=== PATIENT | female | born 2000 | race American Indian/Alaskan Native ===

== ENCOUNTER 2020-09-09 02:15 | Emergency (ER) | payer MEDICAID ==
--- NOTE | 2020-09-09 02:41 | EDM.PDOC ---
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 She was watching TV at the time. She was concerned about this because she has not had a menstrual period since the beginning of January 2020 and she thought that she was . She states that she took a home test in February and it was positive. She has not sought any medical care and she just recently moved to the [facility]. She does have some mild cramping in her pelvic area but it does not radiate. She has no back pain. She rates pain to be as a 5/10. It is cramping type pain. It is worse with palpation. It does seem to come and go and she states at times her abdomen seems to tighten up and then relax. This is irregular. She has been eating and drinking normally. She has had no dysuria or hematuria. She's had no nausea or vomiting. No fevers or chills. She has had no trauma to the area. Last sexual intercourse was 2 days ago and there was no pain associated with this. She has 2 live children and has had one miscarriage. There are no other associated signs or symptoms. There are no other modifying factors. 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 Social & Family History - Tobacco Use Tobacco Use Status *Q: Never Tobacco User Second Hand Smoke Exposure: No - Caffeine Use Caffeine Use: Reports: Soda - Alcohol Use Alcohol Use History: No - Recreational Drug Use Recreational Drug Use: No - Living Situation & Occupation Occupation: Unemployed ED ROS GENERAL - Review of Systems Review Of Systems: See Below Constitutional: Reports: No Symptoms HEENT: Reports: No Symptoms Respiratory: Reports: No Symptoms Cardiovascular: Reports: No Symptoms Endocrine: Reports: No Symptoms : Reports: Pain (Pelvic pain), Other (Vaginal bleeding with prior of blood.) Musculoskeletal: Reports: No Symptoms Skin: Reports: No Symptoms Neurological: Reports: No Symptoms Hematologic/Lymphatic: Reports: No Symptoms Immunologic: Reports: No Symptoms ED EXAM - Physical Exam Exam: See Below Exam Limited By: No Limitations General Appearance: Alert, WD/WN, No Apparent Distress Eye Exam: Bilateral Eye: EOMI, Normal Inspection, PERRL Ears: Normal External Exam, Hearing Grossly Normal Nose: Normal Inspection, Normal Mucosa, No Blood Throat/Mouth: Normal Inspection, Normal Oropharynx, Normal Voice, No Airway Compromise Head: Atraumatic, Normocephalic Neck: Normal Inspection, Supple, Non-Tender, Full Range of Motion Respiratory/Chest: No Respiratory Distress, Lungs Clear, Normal Breath Sounds, No Accessory Muscle Use, Chest Non-Tender Cardiovascular: Normal Peripheral Pulses, Regular Rate, Rhythm, No JVD GI/Abdominal Exam: Normal Bowel Sounds, Soft, No Mass, Pelvis Stable, Other (Unable to palpate the uterus.) Fundal Height In cm: 0 (Unable to palpate the uterus.) Heart Tones: Not [place] Movement: Not Appreciated Back Exam: Normal Inspection, Full Range of Motion Extremities: Normal Inspection, Normal Range of Motion, Non-Tender, No Pedal Edema, Normal Capillary Refill Neurological: Alert, Oriented, CN II-XII Intact, Normal Cognition, No Motor/Sensory Deficits Psychiatric: Normal Affect Skin Exam: Warm, Dry, Intact, Normal Color, No Rash ED Add Procedures - Additional/Other Procedure(s) Procedure(s) (Free Text): Using the portable any ultrasound machine, a screening transabdominal pelvic ultrasound was performed. The bladder was apparent. The uterus was apparent that was empty. There is no free fluid appreciated in the pelvis. No was appreciated. Course - Vital Signs Last Recorded V/S: Last Vital Signs Temp 36.7 C 09/09/20 02:20 Pulse 81 09/09/20 02:20 Resp 18 09/09/20 02:20 BP 113/72 09/09/20 02:20 Pulse Ox 99 09/09/20 02:20 - Orders/Labs/Meds Labs: Laboratory Tests 09/09/20 Range/Units 02:53 Urine HCG, Qual Negative (NEGATIVE) - Re-Assessments/Exams Free Text/Narrative Re-Assessment/Exam: 09/09/20 03:15: 20-year-old female who presented reporting vaginal bleeding and was concerned because her estimate she was by 6 months but looking at the date of her last menstrual. She would be 33 weeks now. Her exam was not consistent with this and it ranges test was negative. She has been amenorrheic from 01/20/2020 until now. There is nothing further be done at this point. She is hemodynamically stable and appears to be having a menstrual period. She is to follow-up with either [facility] or [facility] clinics in [place]. She should call and arrange an appointment to be seen at one of these for further investigation in regard to her amenorrhea. Departure - Departure Time of Disposition: 03:20 Disposition: Home, Self-Care 01 Condition: Good Clinical Impression: Irregular menses - Discharge Information Referrals: PCP,None [Primary Care Provider] - Forms: ED Department Discharge Additional Instructions: Your test was negative. You are not . The vaginal bleeding that you are having appears to be menstrual bleeding. I am not sure why you have not had a menstrual period since January 2020. You will need to arrange for follow-up at either the [facility] or the [facility] in [place] as you will need further outpatient testing in regard to your irregular menstrual periods. Back to the emergency department for unrelenting vomiting, fever or any other concerning sign or symptom. Sepsis Event Note (ED) - Evaluation Sepsis Screening Result: No Definite Risk - Focused Exam Vital Signs: Vital Signs Temp Pulse Resp BP Pulse Ox 09/09/20 02:20 36.7 C 81 18 113/72 99
== END 2020-09-09 03:30 | disposition home or self-care (01) ==
LOC: FB.ED 02:15
DX: N92.6 Irregular menstruation, unspecified (principal)
CPT/HCPCS: 81025; 99284

== ENCOUNTER 2020-09-15 13:14 | Observation (INO) | payer MEDICAID ==
--- NOTE | 2020-09-15 13:17 | EDM.PDOC ---
ED HPI GENERAL MEDICAL PROBLEM - General Time Seen by Provider: 09/15/20 13:15 Source of Information: Reports: Patient History Limitations: Reports: No Limitations - History of Present Illness INITIAL COMMENTS - FREE TEXT/NARRATIVE: 20-year-old female who reports that at approximately 2 AM today she awoke with nausea and then had vomiting. She had diarrhea that began after this and had fitful sleep through the night and then at about 6 AM she developed pain in her epigastrium that was a tightening type pain that became sharp and sometimes radiated through to her back. It was colicky in nature and, at its worst, it was an 8-9/10 and currently is a 2/10. She has had congestion and a cough for about the past 2 days. She doesn't have any difficulty breathing. She reports she has had vomiting 10+ and diarrhea 3. There is no blood in either of these. No fevers or chills. She has had decreased intake since this began. She felt somewhat weak all over. No syncope or presyncope. She was told during her last year that she had gallstones and was supposed to follow-up but has not followed up. She had been eating and drinking normally prior to this. There are no other associated signs or symptoms. There are no other modifying factors. Onset: Today (2 AM) Duration: Waxing/Waning Location: Reports: Abdomen, Back Quality: Reports: Pressure, Sharp, Stabbing Severity: Mild (at times and others.) Improves with: Reports: None Worsens with: Reports: Other (Palpation. 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 Social & Family History - Tobacco Use Tobacco Use Status *Q: Never Tobacco User - Caffeine Use Caffeine Use: Reports: Soda - Alcohol Use Alcohol Use History: No - Living Situation & Occupation Occupation: Unemployed ED ROS GENERAL - Review of Systems Review Of Systems: See Below Constitutional: Reports: No Symptoms HEENT: Reports: Other (Nasal congestion) Respiratory: Reports: Cough Cardiovascular: Reports: No Symptoms GI/Abdominal: Reports: Abdominal Pain, Diarrhea, Nausea, Vomiting : Reports: No Symptoms Musculoskeletal: Reports: Back Pain (Mid back) Skin: Reports: No Symptoms Neurological: Reports: No Symptoms Psychiatric: Reports: No Symptoms Hematologic/Lymphatic: Reports: No Symptoms Immunologic: Reports: No Symptoms ED EXAM, GI/ABD - Physical Exam Exam: See Below Exam Limited By: No Limitations General Appearance: Alert, WD/WN, Moderate Distress (Appears in some discomfort.) Eyes: Bilateral: Normal Appearance, EOMI Ears: Normal External Exam, Hearing Grossly Normal Nose: No Blood Throat/Mouth: Normal Voice, No Airway Compromise, Other (Dry mucus membranes.) Head: Atraumatic, Normocephalic Neck: Normal Inspection, Supple, Non-Tender, Full Range of Motion Respiratory/Chest: No Respiratory Distress, Lungs Clear, Normal Breath Sounds, No Accessory Muscle Use, Chest Non-Tender Cardiovascular: Normal Peripheral Pulses, Regular Rate, Rhythm, No JVD, No Murmur GI/Abdominal Exam: Normal Bowel Sounds, Soft, No Mass, Guarding, Tender (In epigastrium and right upper quadrant.). No: Rigid, Rebound Back Exam: Normal Inspection, Full Range of Motion Extremities: Normal Inspection, Normal Range of Motion, Non-Tender, No Pedal Edema, Normal Capillary Refill Neurological: Alert, Oriented, CN II-XII Intact, Normal Cognition, No Motor/Sensory Deficits Psychiatric: Flat Affect Skin Exam: Warm, Dry, Intact, Normal Color, No Rash Lymphatic: No Adenopathy Course - Vital Signs Last Recorded V/S: Last Vital Signs Temp 36.6 C 09/15/20 14:57 Pulse 78 09/15/20 14:57 Resp 18 09/15/20 14:57 BP 124/74 09/15/20 14:57 Pulse Ox 99 09/15/20 14:57 - Orders/Labs/Meds Orders: Active Orders 24 hr Category Date Time Status Admission Status [Patient Status] [ADT] Routine ADT 09/15/20 16:37 Ordered Abdomen Pelvis w Cont [CT] Stat Exams 09/15/20 15:24 Taken Sodium Chloride 0.9% [Saline Flush] Med 09/15/20 13:19 Active 10 ml FLUSH ASDIRECTED PRN Peripheral IV Insertion Adult [OM.PC] Routine Oth 09/15/20 13:19 Ordered Medication Orders Sodium Chloride (Saline Flush) 10 ml FLUSH ASDIRECTED PRN PRN Reason: Keep Vein Open Last Admin: 09/15/20 15:16 Dose: 10 ml Documented by: Admin: 09/15/20 15:11 Dose: 10 ml Documented by: Admin: 09/15/20 14:53 Dose: 10 ml Documented by: Admin: 09/15/20 14:43 Dose: 10 ml Documented by: Admin: 09/15/20 14:01 Dose: 10 ml Documented by: Admin: 09/15/20 13:48 Dose: 10 ml Documented by: Admin: 09/15/20 13:44 Dose: 10 ml Documented by: AVINASH Labs: Laboratory Tests 09/15/20 09/15/20 09/15/20 Range/Units 13:35 13:35 13:35 WBC 13.7 H (3.0-10.3) x10-3/uL RBC 5.53 H (3.60-5.20) x10(6)uL Hgb 15.2 (11.4-15.5) g/dL Hct 46.5 (34.2-48.2) % MCV 84.1 (76.7-100.5) fL MCH 27.6 (23.9-33.9) pg MCHC 32.8 (31.9-34.8) g/dL RDW 14.2 (12.3-16.5) % Plt Count 244 (151-488) x10(3)uL MPV 9.7 (7.1-12.4) fL Neut % (Auto) 89.8 H (30.8-76.2) % Lymph % (Auto) 7.3 L (18.4-52.1) % [place] % (Auto) 2.0 L (4.4-15.7) % Eos % (Auto) 0.6 (0.6-8.1) % Baso % (Auto) 0.3 (0.2-1.5) % Neut # (Auto) 12.3 H (1.5-6.3) x10-3/uL Lymph # (Auto) 1.0 (1.0-4.4) x10-3/uL [place] # (Auto) 0.3 (0.3-1.0) x10-3/uL Eos # (Auto) 0.1 (0.0-0.8) x10-3/uL Baso # (Auto) 0.0 (0.0-0.1) x10-3/uL Sodium 141 (135-145) mmol/L Potassium 3.7 (3.5-5.3) mmol/L Chloride 105 (100-110) mmol/L Carbon Dioxide 22 (21-32) mmol/L BUN 13 (7-18) mg/dL Creatinine 0.6 (0.55-1.02) mg/dL Est Cr Clr Drug Dosing 116.32 mL/min Estimated GFR (MDRD) > 60 (>60) BUN/Creatinine Ratio 21.7 H (9-20) Glucose 109 (80-116) mg/dL Calcium 9.0 (8.6-10.2) mg/dL Magnesium (1.8-2.5) mg/dL Total Bilirubin 0.5 (0.1-1.3) mg/dL AST 13 (5-25) IU/L ALT 17 (12-36) U/L Alkaline Phosphatase 127 H (56-112) IU/L C-Reactive Protein 0.5 (0.5-0.9) mg/dL Total Protein 8.4 H (6.0-8.0) g/dL Albumin 4.1 (3.5-5.2) g/dL Globulin 4.3 g/dL Albumin/Globulin Ratio 1.0 Lipase 97 (73-393) U/L Urine HCG, Qual (NEGATIVE) SARS-CoV-2 RNA (DANIELLA) (NEGATIVE) 09/15/20 09/15/20 09/15/20 Range/Units 13:35 14:25 15:24 WBC (3.0-10.3) x10-3/uL RBC (3.60-5.20) x10(6)uL Hgb (11.4-15.5) g/dL Hct (34.2-48.2) % MCV (76.7-100.5) fL MCH (23.9-33.9) pg MCHC (31.9-34.8) g/dL RDW (12.3-16.5) % Plt Count (151-488) x10(3)uL MPV (7.1-12.4) fL Neut % (Auto) (30.8-76.2) % Lymph % (Auto) (18.4-52.1) % [place] % (Auto) (4.4-15.7) % Eos % (Auto) (0.6-8.1) % Baso % (Auto) (0.2-1.5) % Neut # (Auto) (1.5-6.3) x10-3/uL Lymph # (Auto) (1.0-4.4) x10-3/uL [place] # (Auto) (0.3-1.0) x10-3/uL Eos # (Auto) (0.0-0.8) x10-3/uL Baso # (Auto) (0.0-0.1) x10-3/uL Sodium (135-145) mmol/L Potassium (3.5-5.3) mmol/L Chloride (100-110) mmol/L Carbon Dioxide (21-32) mmol/L BUN (7-18) mg/dL Creatinine (0.55-1.02) mg/dL Est Cr Clr Drug Dosing mL/min Estimated GFR (MDRD) (>60) BUN/Creatinine Ratio (9-20) Glucose (80-116) mg/dL Calcium (8.6-10.2) mg/dL Magnesium 1.9 (1.8-2.5) mg/dL Total Bilirubin (0.1-1.3) mg/dL AST (5-25) IU/L ALT (12-36) U/L Alkaline Phosphatase (56-112) IU/L C-Reactive Protein (0.5-0.9) mg/dL Total Protein (6.0-8.0) g/dL Albumin (3.5-5.2) g/dL Globulin g/dL Albumin/Globulin Ratio Lipase (73-393) U/L Urine HCG, Qual Negative (NEGATIVE) SARS-CoV-2 RNA (DANIELLA) Negative (NEGATIVE) Meds: Medications Generic Name Dose Route Start Last Admin Trade Name Gael PRN Reason Stop Dose Admin Sodium Chloride 10 ml 09/15/20 13:19 09/15/20 15:16 Saline Flush FLUSH 10 ml ASDIRECTED PRN Administration Keep Vein Open Discontinued Medications Generic Name Dose Route Start Last Admin Trade Name Gael PRN Reason Stop Dose Admin Hydromorphone HCl 1 mg 09/15/20 14:36 09/15/20 14:43 Dilaudid IVPUSH 09/15/20 14:37 1 mg ONETIME ONE Administration Sodium Chloride 1,000 mls @ 999 mls/hr 09/15/20 13:20 09/15/20 13:44 Normal Saline IV 09/15/20 14:20 999 mls/hr .BOLUS ONE Administration Iopamidol 100 ml 09/15/20 15:47 09/15/20 16:09 Isovue-370 (76%) IV 09/15/20 15:48 67 ml . DIRECTED ONE Administration Metoclopramide HCl 10 mg 09/15/20 15:08 09/15/20 15:12 Reglan IVPUSH 09/15/20 15:09 10 mg ONETIME ONE Administration Morphine Sulfate 4 mg 09/15/20 13:20 09/15/20 13:49 Morphine IVPUSH 09/15/20 13:21 4 mg ONETIME ONE Administration Ondansetron HCl 4 mg 09/15/20 13:20 09/15/20 13:45 Zofran IVPUSH 09/15/20 13:21 4 mg ONETIME ONE Administration - Radiology Interpretation Free Text/Narrative:: CT scan of the abdomen and pelvis showed no specific findings to account for the patient's symptoms per the [facility] radiologist. - Re-Assessments/Exams Free Text/Narrative Re-Assessment/Exam: 09/15/20 14:30: Her nausea has resolved. Her pain is a 5/10. Her blood tests do show an elevated white blood cell count at 13.7 but her LFTs and lipase are normal. I will give the patient Dilaudid 1 mg IV 09/15/20 15:20: Patient having continued abdominal pain despite additional pain medicines. She also has had recurrent vomiting. I am giving additional antiemetics now. I have discussed the patient's case with Dr. Baeza and he recommends CT scan of the abdomen and pelvis. 09/15/20 16:35: CT scan of the abdomen and pelvis showed no specific findings to account for the patient's symptoms per the radiologist. Dr. Baeza has seen the patient and he feels that I should admit the patient to the hospitalist and he would follow. An ultrasound of the gallbladder be performed tomorrow during the day. Therefore, I called and discussed the patient's case with Dr. Gaxiola and he will admit the patient. I discussed this with the patient and she is in agreement with the plan for admission. Departure - Departure Time of Disposition: 16:40 Disposition: Refer to Observation Condition: Fair (Stable) Clinical Impression: Vomiting and diarrhea Abdominal pain Qualifiers: Abdominal location: upper abdomen, unspecified Qualified Code(s): R10.10 - Upper abdominal pain, unspecified - Discharge Information Referrals: PCP,None [Primary Care Provider] - Sepsis Event Note (ED) - Focused Exam Vital Signs: Vital Signs Temp Pulse Resp BP Pulse Ox 09/15/20 14:57 36.6 C 78 18 124/74 99 09/15/20 13:21 37.1 C 80 18 119/56 L 96 - My Orders Last 24 Hours: My Active Orders 09/15/20 13:19 Sodium Chloride 0.9% [Saline Flush] 10 ml FLUSH ASDIRECTED PRN Peripheral IV Insertion Adult [OM.PC] Routine 09/15/20 15:24 Abdomen Pelvis w Cont [CT] Stat 09/15/20 16:37 Admission Status [Patient Status] [ADT] Routine - Assessment/Plan Last 24 Hours: My Active Orders 09/15/20 13:19 Sodium Chloride 0.9% [Saline Flush] 10 ml FLUSH ASDIRECTED PRN Peripheral IV Insertion Adult [OM.PC] Routine 09/15/20 15:24 Abdomen Pelvis w Cont [CT] Stat 09/15/20 16:37 Admission Status [Patient Status] [ADT] Routine
[2020-09-15] MEDS ORDERED: Morphine 4 MG/ML VIAL IVPUSH ONE (13:20)
[2020-09-15] MEDS ORDERED: Sodium Chloride 0.9% 1,000 ML IV ONE (13:20)
[2020-09-15] MEDS ORDERED: Ondansetron 4 MG/2 ML SDV IVPUSH ONE (13:20)
[2020-09-15] MEDS: Sodium Chloride 0.9% 10 ML Syringe FLUSH PRN ×7 (13:44→15:16)
[2020-09-15] MEDS ORDERED: HYDROmorphone 2 MG/ML SDV IVPUSH ONE (14:36)
[2020-09-15] MEDS ORDERED: Metoclopramide 10 MG/2 ML SDV IVPUSH ONE (15:08)
[2020-09-15] MEDS ORDERED: Iopamidol 755 Mg/ML 100 ML Bottle IV ONE (15:47)
--- NOTE | 2020-09-15 17:05 | CONS ---
DATE OF CONSULTATION: 09/15/2020 HISTORY OF PRESENT ILLNESS: This 20-year-old female presented to the emergency room today with complaints of upper abdominal pain, some nausea, as well as some episodes of diarrhea. These began approximately 0200. She relates these symptoms to be similar to symptoms she experienced about 15 months ago while . She was evaluated at another facility at that time and reports that she was found to have cholelithiasis documented by ultrasound. The patient says that in the interim, she has been feeling well, she has not been experiencing any difficulty eating or problems with nausea. DIAGNOSTIC DATA: On evaluation today, has identified elevated serum white blood cell count of 13,700. Liver function tests are normal including a bilirubin of 0.5. Her lipase is 97. COVID test as well as CT scan of the abdomen are pending at this time. PAST MEDICAL HISTORY: Reveals no previous abdominal or pelvic surgery. She is a mother of 2 children. She is otherwise healthy. Does not take routine prescription medications. ALLERGIES: Has no known drug allergies. FAMILY HISTORY: Noncontributory. SOCIAL HISTORY: The patient is currently unemployed and is not . She denies alcohol or tobacco use. REVIEW OF SYSTEMS: The patient does note that she has had a slight cough over the last 2 days. No unexplained fever or shortness of breath was noted. No chest pain or palpitations. She typically does not have any symptoms of heartburn or difficulty swallowing. Bowel function has been satisfactory. No voiding difficulties and no extremity complaints. PHYSICAL EXAMINATION: VITAL SIGNS: Weight is 130 pounds, temperature 97.8, pulse 78, blood pressure is 124/74. GENERAL: The patient is an adult female. She is currently in no acute distress. HEENT: Her head is normocephalic. No scleral icterus. No cervical masses are noted. HEART: Regular without murmur. LUNGS: Clear. No wheezing is identified. She has no CVA tenderness to percussion. ABDOMEN: Soft. There is no distention. I do not feel any abdominal masses. She does have tenderness to direct palpation in the right upper quadrant, more medial than lateral. No guarding is noted. There is also mild tenderness to direct palpation in the left lower quadrant. EXTREMITIES: Show no obvious deformity or edema. IMPRESSION: 1. Abdominal pain with history of gallstones, suspect biliary colic. 2. Cough. COVID test pending. RECOMMENDATIONS: We will await results of a pending CT scan and if this confirms gallbladder disease and if the patient's COVID test is negative, we will consider cholecystectomy. I have discussed the proposed cholecystectomy with the patient, reviewed with her indications, options, and risks, and she agrees to have this performed if additional testing supports this. /[id number] ROXANE/PIERO
[2020-09-15] MEDS ORDERED: Ondansetron 4 MG/2 ML SDV IVPUSH PRN (20:01)
[2020-09-15] MEDS ORDERED: HYDROmorphone 2 MG/ML SDV IVPUSH PRN (20:01)
[2020-09-15] MEDS: Dextrose 5%-0.9% NaCl with KCl 1,000 ML IV SCH (20:42)
--- NOTE | 2020-09-15 20:50 | HP ---
ADMISSION DATE: 09/15/2020 CHIEF COMPLAINT: Severe right upper quadrant abdominal pain, nausea, and vomiting. HISTORY OF PRESENT ILLNESS: Girish Castro is a 20-yea-old female, who resides [place], was seen at [facility] ER on the late afternoon of 09/15/2020. She was awakened from sleep about 2:00 a.m. with severe abdominal pain. She thought it was a dream. Immediately, she had episodes of nausea and vomiting. The pain, cramps, discomfort, nausea, and vomiting persisted through the course of the day. Quite severe pain. The pain radiated into the back, but not up into the shoulder. Emesis was bilious nature. Stools have been otherwise unremarkable. History suggests that she has a history of stones dating back to her last . She was diagnosed with stones during her . Her little girl is now 10 months of age. Strong family history of gallbladder disease in mom and mother's grandmother, has no sibling sisters. She has otherwise been in good health. PAST MEDICAL HISTORY: Significant for no previous operative procedures, hospitalizations, unusual childhood diseases, major injuries, or fractures. ALLERGIES: None. GYNECOLOGICAL HISTORY: 2, para 2-0-0-2 female. SOCIAL HISTORY: . works at . She has a son who is going to be 2, daughters 10 months. She is a [id number] mom. No smoking. No vaping. No chewing. No alcohol. No illicit drug use. FAMILY HISTORY: Dad 43, good health. Mom 45, good health. Five brothers. No sisters. No family history of early heart disease, diabetes mellitus, or inheritable cancer. REVIEW OF SYSTEMS: Thirteen-point review of systems other than mentioned in HPI are considered negative, normal, and without conflict. Otherwise healthy fit 20- year-old female. PHYSICAL EXAMINATION: VITAL SIGNS: Stable. GENERAL: Very cooperative and conversant. Gives a good history. HEENT: Funduscopic benign. Conjunctivae are clear. Bright tympanic membranes. Clear nasal discharge. Mouth and oropharynx are clear. NECK: Benign. Thyroid small. CHEST: On auscultation, clear in all lung galvan. HEART: On auscultation, no ectopy or murmur. BREASTS: Deferred. HEART: No ectopy or murmur. ABDOMEN: Benign. Positive Cadet sign. Tender right upper quadrant. No hepatosplenomegaly. GENITOURINARY: Deferred. RECTAL: Deferred. SKIN: No particular lesions, eruptions, or moles. LABORATORY STUDIES: White count 13,700, hemoglobin 15.2, hematocrit 46.5, and normal differential. Electrolytes are satisfactory. Mildly elevated alkaline phosphatase at 127. test negative. COVID test negative. ASSESSMENT: A 20-year-old 2 female, who presents with complicated right upper quadrant pain, strong suspicious for gallbladder disease, history of stones by ultrasound during her last , not seen on CAT scan. PLAN: Hydrate fluids, pain control, nausea control, complementary care, and well-being. Ultrasound be performed in the morning. Dr. Juancarlos Baeza has been consulted for consideration for surgery. /[id number] ADRIENNE/PIERO
[2020-09-16] MEDS: Dextrose 5%-0.9% NaCl with KCl 1,000 ML IV SCH ×2 (03:30→10:14)
--- NOTE | 2020-09-16 09:10 | PCM.PN ---
- General Info Date of Service: 09/16/20 Subjective Update: Patient states that she is better. Pain still persistent on eating anything,associated with vomiting. US pending. Meanwhile she is NPO - Review of Systems General: Reports: No Symptoms HEENT: Reports: No Symptoms Pulmonary: Reports: No Symptoms Cardiovascular: Reports: No Symptoms - Patient Data Vitals - Most Recent: Last Vital Signs Temp 98.7 F 09/16/20 03:30 Pulse 70 09/16/20 03:30 Resp 18 09/16/20 03:30 BP 96/57 L 09/16/20 03:30 Pulse Ox 98 09/16/20 03:30 Weight - Most Recent: 58.241 kg I&O - Last 24 Hours: Intake & Output 09/15/20 09/16/20 09/16/20 22:59 06:59 14:59 Intake Total 1475 Output Total 300 300 Balance -300 1175 Lab Results Last 24 Hours: Laboratory Results - last 24 hr 09/15/20 09/15/20 09/15/20 Range/Units 13:35 13:35 13:35 WBC 13.7 H (3.0-10.3) x10-3/uL RBC 5.53 H (3.60-5.20) x10(6)uL Hgb 15.2 (11.4-15.5) g/dL Hct 46.5 (34.2-48.2) % MCV 84.1 (76.7-100.5) fL MCH 27.6 (23.9-33.9) pg MCHC 32.8 (31.9-34.8) g/dL RDW 14.2 (12.3-16.5) % Plt Count 244 (151-488) x10(3)uL MPV 9.7 (7.1-12.4) fL Neut % (Auto) 89.8 H (30.8-76.2) % Lymph % (Auto) 7.3 L (18.4-52.1) % [place] % (Auto) 2.0 L (4.4-15.7) % Eos % (Auto) 0.6 (0.6-8.1) % Baso % (Auto) 0.3 (0.2-1.5) % Neut # (Auto) 12.3 H (1.5-6.3) x10-3/uL Lymph # (Auto) 1.0 (1.0-4.4) x10-3/uL [place] # (Auto) 0.3 (0.3-1.0) x10-3/uL Eos # (Auto) 0.1 (0.0-0.8) x10-3/uL Baso # (Auto) 0.0 (0.0-0.1) x10-3/uL Sodium 141 (135-145) mmol/L Potassium 3.7 (3.5-5.3) mmol/L Chloride 105 (100-110) mmol/L Carbon Dioxide 22 (21-32) mmol/L BUN 13 (7-18) mg/dL Creatinine 0.6 (0.55-1.02) mg/dL Est Cr Clr Drug Dosing 116.32 mL/min Estimated GFR (MDRD) > 60 (>60) BUN/Creatinine Ratio 21.7 H (9-20) Glucose 109 (80-116) mg/dL Calcium 9.0 (8.6-10.2) mg/dL Magnesium (1.8-2.5) mg/dL Total Bilirubin 0.5 (0.1-1.3) mg/dL AST 13 (5-25) IU/L ALT 17 (12-36) U/L Alkaline Phosphatase 127 H (56-112) IU/L C-Reactive Protein 0.5 (0.5-0.9) mg/dL Total Protein 8.4 H (6.0-8.0) g/dL Albumin 4.1 (3.5-5.2) g/dL Globulin 4.3 g/dL Albumin/Globulin Ratio 1.0 Lipase 97 (73-393) U/L Urine HCG, Qual (NEGATIVE) SARS-CoV-2 RNA (DANIELLA) (NEGATIVE) 09/15/20 09/15/20 09/15/20 Range/Units 13:35 14:25 15:24 WBC (3.0-10.3) x10-3/uL RBC (3.60-5.20) x10(6)uL Hgb (11.4-15.5) g/dL Hct (34.2-48.2) % MCV (76.7-100.5) fL MCH (23.9-33.9) pg MCHC (31.9-34.8) g/dL RDW (12.3-16.5) % Plt Count (151-488) x10(3)uL MPV (7.1-12.4) fL Neut % (Auto) (30.8-76.2) % Lymph % (Auto) (18.4-52.1) % [place] % (Auto) (4.4-15.7) % Eos % (Auto) (0.6-8.1) % Baso % (Auto) (0.2-1.5) % Neut # (Auto) (1.5-6.3) x10-3/uL Lymph # (Auto) (1.0-4.4) x10-3/uL [place] # (Auto) (0.3-1.0) x10-3/uL Eos # (Auto) (0.0-0.8) x10-3/uL Baso # (Auto) (0.0-0.1) x10-3/uL Sodium (135-145) mmol/L Potassium (3.5-5.3) mmol/L Chloride (100-110) mmol/L Carbon Dioxide (21-32) mmol/L BUN (7-18) mg/dL Creatinine (0.55-1.02) mg/dL Est Cr Clr Drug Dosing mL/min Estimated GFR (MDRD) (>60) BUN/Creatinine Ratio (9-20) Glucose (80-116) mg/dL Calcium (8.6-10.2) mg/dL Magnesium 1.9 (1.8-2.5) mg/dL Total Bilirubin (0.1-1.3) mg/dL AST (5-25) IU/L ALT (12-36) U/L Alkaline Phosphatase (56-112) IU/L C-Reactive Protein (0.5-0.9) mg/dL Total Protein (6.0-8.0) g/dL Albumin (3.5-5.2) g/dL Globulin g/dL Albumin/Globulin Ratio Lipase (73-393) U/L Urine HCG, Qual Negative (NEGATIVE) SARS-CoV-2 RNA (DANIELLA) Negative (NEGATIVE) Med Orders - Current: Current Medications Hydromorphone HCl (Dilaudid) 1 mg IVPUSH Q2H PRN PRN Reason: Nausea Potassium Chloride/Dextrose/Sod Cl (D5 Ns With 20 Meq Kcl) 1,000 mls @ 150 mls/hr IV ASDIRECTED JO Last Admin: 09/16/20 03:30 Dose: 150 mls/hr Documented by: Ondansetron HCl (Zofran) 4 mg IVPUSH Q4H PRN PRN Reason: Nausea/Vomiting Sodium Chloride (Saline Flush) 10 ml FLUSH ASDIRECTED PRN PRN Reason: Keep Vein Open Last Admin: 09/15/20 15:16 Dose: 10 ml Documented by: Discontinued Medications Hydromorphone HCl (Dilaudid) 1 mg IVPUSH ONETIME ONE Stop: 09/15/20 14:37 Last Admin: 09/15/20 14:43 Dose: 1 mg Documented by: Sodium Chloride (Normal Saline) 1,000 mls @ 999 mls/hr IV .BOLUS ONE Stop: 09/15/20 14:20 Last Admin: 09/15/20 13:44 Dose: 999 mls/hr Documented by: Iopamidol (Isovue-370 (76%)) 100 ml IV . DIRECTED ONE Stop: 09/15/20 15:48 Last Admin: 09/15/20 16:09 Dose: 67 ml Documented by: Metoclopramide HCl (Reglan) 10 mg IVPUSH ONETIME ONE Stop: 09/15/20 15:09 Last Admin: 09/15/20 15:12 Dose: 10 mg Documented by: Morphine Sulfate (Morphine) 4 mg IVPUSH ONETIME ONE Stop: 09/15/20 13:21 Last Admin: 09/15/20 13:49 Dose: 4 mg Documented by: Ondansetron HCl (Zofran) 4 mg IVPUSH ONETIME ONE Stop: 09/15/20 13:21 Last Admin: 09/15/20 13:45 Dose: 4 mg Documented by: - Exam General: Alert, Oriented Neck: Supple GI/Abdominal Exam: Normal Bowel Sounds, Soft, Distended, Tender. No: Mass, Hepatomegaly, Splenomegaly Neurological: No New Focal Deficit Psy/Mental Status: Alert Sepsis Event Note - Evaluation Sepsis Screening Result: No Definite Risk - Focused Exam Vital Signs: Vital Signs Temp Pulse Resp BP Pulse Ox 09/16/20 03:30 98.7 F 70 18 96/57 L 98 - Problem List & Annotations (1) Epigastric pain SNOMED Code(s): 81991495 Code(s): R10.13 - EPIGASTRIC PAIN Status: Acute Current Visit: Yes - Problem List Review Problem List Initiated/Reviewed/Updated: Yes - Plan Plan:: Obtain US to r/o gallbladder disease. Treat symptomatically. PPI,IV antiemetics. Possible DC in AM
--- NOTE | 2020-09-16 11:54 | US ---
INDICATION: Right upper quadrant abdominal pain, consider gallstones. RIGHT UPPER QUADRANT/GALLBLADDER ULTRASOUND: Utilizing 2-D realtime, duplex Doppler, spectral analysis and color-flow imaging examination of the right upper quadrant was obtained and revealed the gallbladder to be normal in size. However, there are multiple calculi of small to moderate number, the largest measuring approximately 1.2 cm. No wall thickening, sludge, pericholecystic fluid or positive ultrasonic Cadet sign was noted. Common bile duct was normal in caliber at 3.7 mm. The liver, pancreas, and right kidney were unremarkable. No mass lesions or free fluid collections were identified. IMPRESSION: Cholelithiasis. Report was given in person to Dr. Baeza at 1011 hours. [facility]
--- NOTE | 2020-09-16 15:17 | PCM.SURGPN ---
- General Info Date of Service: 09/16/20 - Review of Systems Systems Review Comment:: Patient continues to have pain in her abdomen today. She underwent an ultrasound this morning which confirmed cholelithiasis. Symptoms are consistent with this as a cause of her pain and I have advised cholecystectomy to which the patient agrees. I have discussed the proposed cholecystectomy with the patient. Risks and possible complications reviewed. Potential GI side effects of cholecystectomy also discussed. She agrees to proceed. This will be scheduled later today. - Patient Data Vitals - Most Recent: Last Vital Signs Temp 98.7 F 09/16/20 07:51 Pulse 67 09/16/20 07:51 Resp 18 09/16/20 07:51 BP 123/77 09/16/20 07:51 Pulse Ox 99 09/16/20 07:51 Weight - Most Recent: 128 lb 6.4 oz I&O - Last 24 Hours: Intake & Output 09/16/20 09/16/20 09/16/20 06:59 14:59 22:59 Intake Total 1475 1053 Output Total 300 Balance 1175 1053 Lab Results Last 24 Hrs: Laboratory Results - last 24 hr 09/15/20 Range/Units 15:24 SARS-CoV-2 RNA (DNAIELLA) Negative (NEGATIVE) Med Orders - Current: Current Medications Hydromorphone HCl (Dilaudid) 1 mg IVPUSH Q2H PRN PRN Reason: Nausea Potassium Chloride/Dextrose/Sod Cl (D5 Ns With 20 Meq Kcl) 1,000 mls @ 150 mls/hr IV ASDIRECTED JO Last Admin: 09/16/20 10:14 Dose: 150 mls/hr Documented by: Ondansetron HCl (Zofran) 4 mg IVPUSH Q4H PRN PRN Reason: Nausea/Vomiting Sodium Chloride (Saline Flush) 10 ml FLUSH ASDIRECTED PRN PRN Reason: Keep Vein Open Last Admin: 09/15/20 15:16 Dose: 10 ml Documented by: Discontinued Medications Hydromorphone HCl (Dilaudid) 1 mg IVPUSH ONETIME ONE Stop: 09/15/20 14:37 Last Admin: 09/15/20 14:43 Dose: 1 mg Documented by: Sodium Chloride (Normal Saline) 1,000 mls @ 999 mls/hr IV .BOLUS ONE Stop: 09/15/20 14:20 Last Admin: 09/15/20 13:44 Dose: 999 mls/hr Documented by: Iopamidol (Isovue-370 (76%)) 100 ml IV . DIRECTED ONE Stop: 09/15/20 15:48 Last Admin: 09/15/20 16:09 Dose: 67 ml Documented by: Metoclopramide HCl (Reglan) 10 mg IVPUSH ONETIME ONE Stop: 09/15/20 15:09 Last Admin: 09/15/20 15:12 Dose: 10 mg Documented by: Morphine Sulfate (Morphine) 4 mg IVPUSH ONETIME ONE Stop: 09/15/20 13:21 Last Admin: 09/15/20 13:49 Dose: 4 mg Documented by: Ondansetron HCl (Zofran) 4 mg IVPUSH ONETIME ONE Stop: 09/15/20 13:21 Last Admin: 09/15/20 13:45 Dose: 4 mg Documented by: Sepsis Event Note - Evaluation Sepsis Screening Result: No Definite Risk - Focused Exam Vital Signs: Vital Signs Temp Pulse Resp BP Pulse Ox 09/16/20 07:51 98.7 F 67 18 123/77 99 09/16/20 03:30 98.7 F 70 18 96/57 L 98 - Problem List Review Problem List Initiated/Reviewed/Updated: Yes - My Orders Last 24 Hours: Active Orders 24 hr Category Date Time Status Admission Status [Patient Status] [ADT] Routine ADT 09/15/20 16:37 Active Notify Provider Consults [RC] ASDIRECTED Care 09/15/20 20:05 Active Vital Signs [RC] Q6H Care 09/15/20 20:04 Active Consult to Physician [CONS] Routine Cons 09/15/20 20:04 Ordered Clear Liquid Diet [DIET] Diet 09/16/20 Breakfast Active Abdomen Pelvis w Cont [CT] Stat Exams 09/15/20 15:24 Taken Dextrose 5%-0.9% NaCl with KCl [D5 NS with 20 mEq KCl] Med 09/15/20 20:00 Active 1,000 ml IV ASDIRECTED HYDROmorphone [Dilaudid] Med 09/15/20 20:01 Active 1 mg IVPUSH Q2H PRN Ondansetron [Zofran] Med 09/15/20 20:01 Active 4 mg IVPUSH Q4H PRN Resuscitation Status Routine Resus Stat 09/15/20 19:27 Ordered Medication Orders Hydromorphone HCl (Dilaudid) 1 mg IVPUSH Q2H PRN PRN Reason: Nausea Potassium Chloride/Dextrose/Sod Cl (D5 Ns With 20 Meq Kcl) 1,000 mls @ 150 mls/hr IV ASDIRECTED JO Last Admin: 09/16/20 10:14 Dose: 150 mls/hr Documented by: Infusion: 09/16/20 10:11 Dose: 150 mls/hr Documented by: Admin: 09/16/20 03:30 Dose: 150 mls/hr Documented by: Infusion: 09/16/20 03:23 Dose: 150 mls/hr Documented by: Admin: 09/15/20 20:42 Dose: 150 mls/hr Documented by: EMILY Ondansetron HCl (Zofran) 4 mg IVPUSH Q4H PRN PRN Reason: Nausea/Vomiting Sodium Chloride (Saline Flush) 10 ml FLUSH ASDIRECTED PRN PRN Reason: Keep Vein Open Last Admin: 09/15/20 15:16 Dose: 10 ml Documented by: Admin: 09/15/20 15:11 Dose: 10 ml Documented by: Admin: 09/15/20 14:53 Dose: 10 ml Documented by: Admin: 09/15/20 14:43 Dose: 10 ml Documented by: Admin: 09/15/20 14:01 Dose: 10 ml Documented by: Admin: 09/15/20 13:48 Dose: 10 ml Documented by: Admin: 09/15/20 13:44 Dose: 10 ml Documented by: AVINASH - Assessment Assessment (Free Text/Narrative):: Symptomatic cholelithiasis - Plan Plan (Free Text/Narrative):: Laparoscopic cholecystectomy
[2020-09-16] MEDS ORDERED: Bupivacaine 0.5% 50 ML MDV INJECT ONE (15:39)
--- NOTE | 2020-09-16 16:34 | PCM.OPNOTE ---
- General Post-Op/Procedure Note Date of Surgery/Procedure: 09/16/20 Operative Procedure(s): Laparoscopic Cholecystectomy Findings: Mild adhesions to lower portion of gallbladder with mild edema of gallbladder wall. Stones were noted in the gallbladder. Liver and other intra-abdominal organs appear normal as visualized via the laparoscope Pre Op Diagnosis: Cholecystitis with cholelithiasis Post-Op Diagnosis: Same Anesthesia Technique: General ET Tube Primary Surgeon: Juancarlos Baeza Pathology: gallbladder with stones EBL in mLs: 10 Complications: None Condition: Good Free Text/Narrative:: Intake & Output 09/16/20 09/16/20 09/16/20 06:59 14:59 22:59 Intake Total 1475 1053 Output Total 300 Balance 1175 1053
--- NOTE | 2020-09-16 17:12 | OR ---
DATE OF OPERATION: 09/16/2020 SURGEON: Juancarlos Baeza MD PREOPERATIVE DIAGNOSIS: Cholecystitis with cholelithiasis. POSTOPERATIVE DIAGNOSIS: Cholecystitis with cholelithiasis. OPERATION PERFORMED: Laparoscopic cholecystectomy. INDICATIONS FOR SURGERY: This 20-year-old female presented to the emergency room with abdominal pain. Workup has identified cholelithiasis, which was felt to be the source of her symptoms, and she comes for cholecystectomy. FINDINGS: The patient's gallbladder does contain stones including a stone greater than 1 cm in size. It has some mild edema in the wall of the gallbladder and also there are some adhesions to its undersurface. The adjacent liver and other intraabdominal organs appear normal as viewed laparoscopically. PROCEDURE IN DETAIL: The patient was taken to the operating room. She was given general endotracheal anesthesia and the abdomen was sterilely prepped and draped. An infraumbilical stab wound incision was made. Through this, a Veress needle was inserted and pneumoperitoneum via this needle to a pressure of 15 mmHg was achieved with carbon dioxide. The Veress needle was then replaced with a 12 mm trocar into which the 5 mm variable angled laparoscopic camera was inserted. Under direct visualization, 5 mm trocars were placed in the subxiphoid midline and in two areas of the right abdomen. All trocar sites were infiltrated with Marcaine prior to incision. Intra-abdominal inspection was carried out and attention was turned to the gallbladder. It was secured with grasping forceps placed through the lateral trocars and retracted superiorly and anteriorly. The adhesions to the undersurface of the gallbladder were carefully taken down until the lower part of the gallbladder was exposed. Dissection then identified the cystic artery, and once this had been clearly identified, it was doubly clipped and divided. Additional dissection in the triangle of Calot exposed the cystic duct as well as an accessory cystic artery. This accessory cystic artery was also doubly clipped and divided. Once the cystic duct was clearly and positively identified and the triangle of Calot was cleared confirming its identity, the cystic duct was milked and then it was doubly clipped and divided near the gallbladder with great care being used to avoid any injury or compromise to the common bile duct. The gallbladder was then dissected free from the undersurface of the liver using the hook cautery device. Once it was completely freed, it was extracted through the umbilical trocar site. Because of the larger stone, the gallbladder had to be opened extra- abdominally and the stone extracted before the gallbladder could be removed, but this was able to be accomplished without any bile or stone spillage intra- abdominally. Reinspection of the gallbladder bed showed good hemostasis and no sign of any complication. The fascia at the umbilical trocar site was closed with a [id number] 0 Vicryl suture. The wounds were irrigated with Betadine and saline solution. Skin incisions approximated with interrupted 4-0 Vicryl in a subcuticular stitch. Benzoin and Steri-Strips were applied followed by antibiotic ointment and sterile dressings. The patient was awakened, extubated, and taken from the operating room in satisfactory condition. ESTIMATED BLOOD LOSS: 10 mL. COMPLICATIONS: None. PROGNOSIS: Good. /[id number] ROXANE/PIERO
[2020-09-16] MEDS ORDERED: Propofol 200 MG/20 ML SDV IV ONE (20:04)
[2020-09-16] MEDS ORDERED: Lidocaine 2% 5 ML SDV INJECT ONE (20:04)
[2020-09-16] MEDS ORDERED: Neostigmine Methylsulfate 10 MG/10 ML MDV IVPUSH ONE (20:04)
[2020-09-16] MEDS ORDERED: Rocuronium 50 MG/5 ML Vial IV ONE (20:04)
[2020-09-16] MEDS ORDERED: ceFAZolin 1 GM Vial IV ONE (20:04)
[2020-09-16] MEDS ORDERED: Metoprolol Tartrate 5 MG/5 ML SDV IV ONE (20:04)
[2020-09-16] MEDS ORDERED: Lactated Ringers 1,000 ML IV ONE (20:04)
[2020-09-16] MEDS ORDERED: Glycopyrrolate 0.2 MG/ML 5 ML MDV IV ONE (20:04)
[2020-09-16] MEDS ORDERED: fentaNYL 100 MCG/2 ML SDV IV ONE (20:04)
[2020-09-16] MEDS ORDERED: Ketorolac 30 MG/ML SDV IVPUSH ONE (20:04)
[2020-09-16] MEDS ORDERED: Midazolam 1 MG/ML 2 ML SDV IV ONE (20:04)
[2020-09-16] MEDS ORDERED: Ondansetron 4 MG/2 ML SDV IVPUSH ONE (20:04)
[2020-09-16] MEDS ORDERED: Dexamethasone 4 MG/ML 5 ML MDV IVPUSH ONE (20:04)
[2020-09-16 20:27] VITALS: BP 118/84; PULSE 78
--- NOTE | 2020-09-19 10:32 | DISCH ---
DISCHARGE DATE: 09/16/2020 REASON FOR ADMISSION: Abdominal pain. DISCHARGE DIAGNOSIS: Gallstone disease. CONSULTATIONS: Dr. Baeza. OPERATION: Cholecystectomy, laparoscopic. BRIEF HISTORY: A 20-year-old who presents to the ER with vomiting, colicky abdominal pain, was found to have a gallstone on ultrasound. Dr. Baeza did cholecystectomy and discharged on the . I spent less than 30 minutes in the discharge of the patient. /[id number] SHANNAN/LEONELL
== END 2020-09-16 20:05 | disposition home or self-care (01) ==
LOC: FB.ED 13:14 → FB.MS 16:37
PROVIDERS: ADMIT Family Medicine; ATTEND Family Medicine
DX: K80.10 Calculus of gallbladder with chronic cholecystitis without obstruction (principal); Z01.812 Encounter for preprocedural laboratory examination; Z20.828 Contact with and (suspected) exposure to other viral communicable diseases
CPT/HCPCS: 00790-QZ; 74177; 76705; 80053; 81025; 83690; 83735; 85025; 86140; 88304; 96374; 96375; 99284; 99285-25; G0378; J0690; J1100; J1170; J1885; J2001; J2250; J2270; J2405; J2704; J2710; J2765; J3010; J3480; J3490; J7030; J7120; Q9967; U0002

== ENCOUNTER 2023-05-16 16:53 | Emergency (ER) | payer MEDICAID, OTHER ==
[2023-05-16] MEDS ORDERED: Sodium Chloride 0.9% 10 ML Syringe FLUSH PRN (17:01)
[2023-05-16] MEDS ORDERED: Ondansetron 4 MG/2 ML SDV IVPUSH ONE (17:03)
[2023-05-16] MEDS ORDERED: Sodium Chloride 0.9% 1,000 ML IV SCH (17:15)
[2023-05-16 17:23] LABS: HEMATOCRIT 42.6 % (34.2-48.2); HEMOGLOBIN 14.4 g/dL (11.4-15.5); MEAN CORPUSCULAR HEMOGLOBIN 26.5 pg (23.9-33.9); MEAN CORPUSCULAR HGB CONC 33.9 g/dL (31.9-34.8); MEAN CORPUSCULAR VOLUME 78.3 fL (76.7-100.5); MEAN PLATELET VOLUME 9.3 fL (7.1-12.4); PLATELET COUNT,PLT 288 x10(3)uL (151-488); RED BLOOD CELL COUNT 5.44 x10(6)uL (3.60-5.20); RED CELL DISTRIBUTION WIDTH 17.5 % (12.3-16.5); WHITE BLOOD CELL COUNT,WBC 19.3 x10-3/uL (3.0-10.3)
[2023-05-16 17:24] LABS: BLOOD UREA NITROGEN,BUN 24 mg/dL (7-18); CALCIUM 9.6 mg/dL (8.6-10.2); CARBON DIOXIDE,CO2 28 mmol/L (21-32); CHLORIDE,CL 92 mmol/L (100-110); ESTIMATED GFR 81 mL/min (>60); GLUCOSE RANDOM 149 mg/dL (80-116); SODIUM,NA 135 mmol/L (135-145)
[2023-05-16 17:27] LABS: POTASSIUM,K 2.6 mmol/L (3.5-5.3)
[2023-05-16] MEDS ORDERED: Potassium Chloride 20 MEQ Tab.ER PO ONE (17:27)
[2023-05-16] MEDS ORDERED: Prochlorperazine 10 MG/2 ML SDV IVPUSH ONE (17:31)
[2023-05-16 17:50] LABS: BAND PERCENT MAN 1 % (0-6); LYMPHOCYTES PERCENT MAN 4 % (13-37); MONOCYTES PERCENT MAN 2 % (4-12); SEG NEUTROPHILS PERCENT MAN 93 % (46-82)
[2023-05-16] MEDS: Sodium Chloride 0.9% 1,000 ML IV SCH (18:15)
[2023-05-16] MEDS ORDERED: Potassium Chloride 10 MEQ in Premix Bag 1 BAG IV ONE ×3 (18:41→21:19)
[2023-05-16 18:47] LABS: BILIRUBIN,URINE SMALL (NEGATIVE); GLUCOSE,URINE NORMAL (NORMAL); KETONES,URINE 150 mg/dL (NEGATIVE); LEUKOCYTE ESTERASE,URINE SMALL (NEGATIVE); NITRITE,URINE NEGATIVE (NEGATIVE); OCCULT BLOOD,URINE MODERATE (NEGATIVE); PROTEIN,URINE 30 mg/dL (NEGATIVE); UROBILINOGEN,URINE 4 mg/dL (NEGATIVE)
[2023-05-16 18:49] LABS: APPEARANCE,URINE SLIGHTLY CLOUDY (CLEAR); COLOR,URINE BROWN (YELLOW); RBC,URINE 0-5 (0-5)
[2023-05-16 18:50] LABS: BACTERIA,URINE MODERATE (NS); HYALINE CASTS,URINE MODERATE (NS); SQUAMOUS EPITHELIAL CELLS,UR MODERATE (NS,R,O)
[2023-05-16] MEDS: Potassium Chloride 100 ML ONE (21:29)
[2023-05-16 23:27] LABS: HEMATOCRIT 34.7 % (34.2-48.2); HEMOGLOBIN 11.7 g/dL (11.4-15.5); MEAN CORPUSCULAR HEMOGLOBIN 26.7 pg (23.9-33.9); MEAN CORPUSCULAR HGB CONC 33.8 g/dL (31.9-34.8); MEAN PLATELET VOLUME 9.1 fL (7.1-12.4); PLATELET COUNT,PLT 232 x10(3)uL (151-488); RED BLOOD CELL COUNT 4.39 x10(6)uL (3.60-5.20); RED CELL DISTRIBUTION WIDTH 17.5 % (12.3-16.5); WHITE BLOOD CELL COUNT,WBC 15.5 x10-3/uL (3.0-10.3)
[2023-05-16 23:33] LABS: BLOOD UREA NITROGEN,BUN 15 mg/dL (7-18); BUN/CREATININE RATIO 21.4 (9-20); CALCIUM 7.8 mg/dL (8.6-10.2); CARBON DIOXIDE,CO2 28 mmol/L (21-32); CHLORIDE,CL 100 mmol/L (100-110); CREATININE 0.7 mg/dL (0.55-1.02); ESTIMATED GFR 124 mL/min (>60); GLUCOSE RANDOM 121 mg/dL (80-116); POTASSIUM,K 3.3 mmol/L (3.5-5.3); SODIUM,NA 137 mmol/L (135-145)
[2023-05-16 23:52] LABS: BAND PERCENT MAN 3 % (0-6); LYMPHOCYTES PERCENT MAN 8 % (13-37); MONOCYTES PERCENT MAN 4 % (4-12); SEG NEUTROPHILS PERCENT MAN 85 % (46-82)
[2023-05-17] MEDS: Potassium Chloride 100 ML ONE (22:21)
[2023-05-17] MEDS ORDERED: Potassium Chloride 10 MEQ in Premix Bag 1 BAG IV ONE (22:21)
== END 2023-05-16 23:50 | disposition home or self-care (01) ==
LOC: FB.ED 16:53
DX: O23.40 Unspecified infection of urinary tract in pregnancy, unspecified trimester (principal); N39.0 Urinary tract infection, site not specified; E86.0 Dehydration; E87.6 Hypokalemia
CPT/HCPCS: 36415; 80048; 81001; 84702; 85025; 87086; 87088; 87186; 96361; 96365; 96366; 96375; 99283; 99284-25; A9270-GY; J0780; J2405; J3480; J3490; J7030